=== PATIENT | male | born 1980 | race Hispanic/Latino ===

== ENCOUNTER 2022-07-31 13:10 | Emergency (ER) | payer OTHER ==
[~2022-07-31] VITALS: Ht 180.3 cm; Wt 128.8 kg
[2022-07-31 13:26] VITALS: BP 153/91
[2022-07-31] MEDS ORDERED: PRED20TA3 PO (14:13)
== END 2022-07-31 14:19 | disposition home or self-care (01) ==
LOC: EDH 13:10
DX: G51.0 Bell's palsy (principal); F17.200 Nicotine dependence, unspecified, uncomplicated